=== PATIENT | female | born 1960 | race Caucasian/White ===

== ENCOUNTER 2020-08-08 07:21 | Outpatient (REF) | payer OTHER, SELFPAY ==
--- NOTE | ~2020-08-08 | MM_ITS ---
EXAMINATION: MM SCREENING DIGITAL BREAST TOMOSYNTHESIS, BILATERAL CLINICAL INFORMATION: Screening. Asymptomatic. The lifetime risk of breast cancer based on the Tyrer-Cuzick Model is 4.8%. COMPARISON: Mammography: December 29, 2016 and studies dating back to December 24, 2011 TECHNIQUE: Digital breast tomosynthesis is performed in both the craniocaudal and mediolateral oblique views along with computer-aided detection (CAD). Synthesized 2D images are generated from the tomosynthesis. FINDINGS: The breasts are heterogeneously dense, which may obscure small masses (ACR BI-RADS breast composition Category c). There are no significant masses, abnormal calcifications, or other abnormalities. MM/MM tomosynthesis screening BI IMPRESSION: There are no significant changes from prior study. ASSESSMENT: BI-RADS 1: Negative RECOMMENDATION: Routine annual mammography screening. This patient's information was entered into a reminder system with a target due date for their next mammogram.
== END 2020-08-08 07:22 | disposition home or self-care (01) ==
LOC: HO.MAMMO 07:21
PROVIDERS: Visit Provider Obstetrics & Gynecology
DX: Z12.31 Encounter for screening mammogram for malignant neoplasm of breast (principal)
CPT/HCPCS: 77063; 77067

== ENCOUNTER 2021-09-24 09:07 | Outpatient (REF) | payer OTHER, SELFPAY | END 2021-09-24 09:08 | disposition home or self-care (01) | LOC: HO.LAB 09:07 | PROVIDERS: PCP Internal Medicine; Visit Provider Psychiatry & Neurology Neurology | DX: G71.00 Muscular dystrophy, unspecified (principal) | CPT/HCPCS: 36415; 82550 ==

== ENCOUNTER 2022-07-21 07:37 | Outpatient (REF) | payer OTHER, SELFPAY ==
[2022-07-21 12:23] LABS: Erythrocyte Sedimentation Rate 3 MM/HR (0-20)
[2022-07-21 12:29] LABS: Rheumatoid Factor < 13.0 IU/mL (<15.0)
[2022-07-23 08:13] LABS: Lyme Abs Screen <0.90 index
[2022-07-23 15:09] LABS: IgA 127 mg/dL (47-310); IgG 981 mg/dL (600-1640); IgM 58 mg/dL (50-300)
[2022-07-26 13:58] LABS: Anti Nuclear Antibody Screen NEGATIVE (NEGATIVE)
== END 2022-07-21 07:38 | disposition home or self-care (01) ==
LOC: HO.WFDLDS 07:37
PROVIDERS: Visit Provider Psychiatry & Neurology Neurology
DX: M79.671 Pain in right foot (principal); M79.672 Pain in left foot; G62.9 Polyneuropathy, unspecified
CPT/HCPCS: 36415; 82784; 85652; 86038; 86334; 86431; 86617; 86618

== ENCOUNTER 2023-07-08 12:36 | Outpatient (REF) | payer OTHER, SELFPAY | END 2023-07-08 12:37 | disposition home or self-care (01) | LOC: HO.MAMMO 12:36 | PROVIDERS: PCP Internal Medicine; Visit Provider Internal Medicine | DX: Z12.31 Encounter for screening mammogram for malignant neoplasm of breast (principal) | CPT/HCPCS: 77063; 77067 ==

== ENCOUNTER → 2023-07-08 13:00 | Outpatient (BNV) | payer OTHER, SELFPAY | PROVIDERS: PCP Internal Medicine; Visit Provider Radiology Diagnostic Radiology | DX: Z12.31 Encounter for screening mammogram for malignant neoplasm of breast (principal) | CPT/HCPCS: 77063; 77067 ==

== ENCOUNTER 2024-09-01 15:33 | Outpatient (REF) | payer OTHER, SELFPAY ==
--- OUTSIDE RECORDS SUMMARY | 2023-12-24 05:45 | XMS_ITS ---
Author Name [facility] [place] [facility] [place] Address [address] [place] [address] Care Team Providers Care Clinical Laboratory Aide Name Role Phone EBONIE MARIE Primary Care Provider Unavail able Insurance Providers: All historical and current Section Date Range: From patient's date of to the date document was created. This section includes the names of all active insurance providers for the patient. Insurance Provider Type of Coverage Plan Name Start of Policy Coverage End of Policy Coverage Group Number Member ID Insurance Provider's Telephone Number Policy Carreon's Name Patient's Relationship to Policy Carreon [employer] PRESCRIPT ION RX Mar 15, 2022 THPRX [id number] CYNTHIA SOTO PATIENT [facility] HOWARD Navaror Nov 14, 2019 [facility] [id number] CYNTHIA SOTO PATIENT Selected Encounter This section includes the information on record at [place] for the Encounter. Date/Time Encounter Type Encounter Description Reason Provider Source Dec 24, 2023 09:45 AM CPTR OPHTH DX IMG POST SEGMT OPTOMETRY ICD-10-CM H35.9 Unspecified retinal disorder PRAVIN JURADO IHRamon Encounter Template Text not used by [facility] Assessments - Encounter Diagnoses This section includes the primary and secondary diagnoses documented for the Encounter. Date/Time Primary/Secondary Diagnosis Diagnosis Name Provider Source Dec 24, 2023 12:59 PM PRIMARY Unspecified retinal disorder LUCILLESUSANNAANDRESPRAVIN Navarro GERTRUDIS J [place] [facility] [place] [facility] Plan of Treatment: Future Appointments (+ 6 months) and Future Tests (+/- 45 days) The Plan of Treatment section includes [facility] care activities for the [facility] [place] [facility] This section includes future appointments and future orders which are active, pending or scheduled. Future Appointments This section includes appointments that were scheduled to occur 6 months from the date of the Encounter, up to a maximum of 20 appointments. The data comes from all [facility]. Appointment Date/Time Appointment Type Appointme nt Facility Name Jan 04, 2024 09:30 AM AM[facility]ULATORY - [facility] [place] [facility] Jan 19, 2024 01:30 PM AMBULATORY - MEDICINE [facility] Feb 15, 2024 04:45 PM [place]ORY [place] [facility] [place] [facility] Feb 15, 2024 05:15 PM [place]ORY [place] [facility] [place] [facility] Feb 15, 2024 05:45 PM AM[place]UL[place]ORY [place] [facility] [place] [facility] Mar 07, 2024 02:00 PM AM[place]UL[place]ORY [place] [facility] [place] [place] [facility] Apr 18, 2024 02:00 PM AM[place]UL[place]ORY [place] [facility] [place] [place] [facility] Apr 19, 2024 01:30 PM AMBULATORY - MEDICINE [facility] May 26, 2024 02:00 PM AMBULATORY - REHAB [facility] Active, Pending, and Scheduled Orders This section includes a listing of several types of active, pending, and scheduled orders, including clinic medications orders, diagnostic test orders, procedure orders and consult orders; where the start date of the order is 45 days before the date of the Encounter or 45 days after the date of theEncounter. The data comes from all [facility]. Test Date/Time Test Type Test Details Facility Name Jan 19, 2024 06:45 PM Consult Order [facility]-NEUROLOGY Cons [employer] [facility] Lab Results: +/- 30 days of the encounter This section includes the Chemistry and Hematology Lab Results on record with [place] for the patient. Radiology Reports and Pathology Reports are provided separately, in subsequent sections. Lab Results This section contains the Chemistry/Hematology Results that were resulted 30 days before or 30 daysafter the date of the Encounter. Date/Time Source Result Type Result - Unit Interpretation Reference Range Specimen Type Comment Dec 22, 2023 10:44 AM [facility] LIPOPROTEIN (a) SERUM Specimen Type: SERUM Comment: REFERENCE RANGE: <75 nmol/L Risk Category Optimal < 75 nmol/L Moderate 75 - 125 nmol/L High > 125 nmol/L Cardiovascular event risk category cut points (optimal, moderate, high) are based on Jenaro Delgado [facility] 2017;69:[id number] . Test Performed by [facility], [employer] [facility], [address] [place] [address] Lawrence Dorman M.D., Ph.D., Director of Laboratories , [place] [id number] TEST PERFORMED AT: , Ordering Provider: GINGER JOHNSTON Report Released Date/Time: Dec 22, 2023 10:36 AM Reporting Lab: [facility] [address] [address] Performing Lab: [facility] [address] [address] LIPOPROTEIN (a) 10 nmol/L SEE BELOW Dec 22, 2023 10:44 AM [facility] VITAMIN B12 SERUM Specimen Type: SERUM No comment entered. Ordering Provider: GINGER JOHNSTON Report Released Date/Time: Dec 22, 2023 10:36 AM Reporting Lab: [facility] [address] [address] Performing Lab: [facility] [address] [address] VITAMIN B12 779 pg/mL 200-900 Dec 17, 2023 10:14 AM [facility] BASIC METABOLIC PANEL (fasting) SERUM Specimen Type: SERUM No comment entered. Ordering Provider: GINGER JOHNSTON Report Released Date/Time: Dec 09, 2023 08:12 AM Reporting Lab: [facility] [address] [address] Performing Lab: [address] [address] UREA NITROGEN 17 mg/dL 7-25 GLUCOSE 86 mg/dL 65-100 SODIUM 140 mmol/L 135-145 POTASSIUM 4.4 mmol/L 3.5-5.0 CHLORIDE 105 mmol/L 100-110 CO2 26 meq/L 20-30 CREATININE, Serum 0.73 mg/dL 0.50-1.40 eGFR(CKD-EPI 2020) >90 mL/min >60 Dec 17, 2023 10:14 AM [facility] LIPID PANEL FASTING SERUM Specimen Ty pe: SERUM No comment entered. Ordering Provider: GINGER JOHNSTON Report Released Date/Time: Dec 09, 2023 08:12 AM Reporting Lab: [address] [address] Performing Lab: [address] [address] CHOLESTEROL 269 mg/dL H TRIGLYCERIDE 69 mg/dL 0-150 LDL calculated 176 mg/dL H 0-129 CHOL/HDL 3.4 HDL CHOLESTEROL 79 mg/dL H 40-60 Dec 17, 2023 10:14 AM [facility] LIVER FUNCTION SERUM Specimen Type: SERUM No comment entered. Ordering Provider: GINGER JOHNSTON Report Released Date/Time: Dec 09, 2023 08:12 AM Reporting Lab: [address] [address] Performing Lab: [address] [address] PROTEIN,TOTAL 6.9 g/dL 6.0-8.3 ALBUMIN 4.3 g/dL 3.5-5.0 ALKALINE PHOSPHATASE 44 U/L 40-150 AST 37 U/L H 5-34 ALT 31 U/L BILIRUBIN, TOTAL 0.7 mg/dL 0.2-1.2 Dec 17, 2023 10:14 AM [facility] CBC AND DIFF (AUTO) BLOOD Specimen Ty pe: BLOOD No comment entered. Ordering Provider: GINGER JOHNSTON Report Released Date/Time: Dec 09, 2023 08:12 AM Reporting Lab: [address] [address] Performing Lab: [address] [address] WBC 3.48 10*3/uL L 4.50-11.00 RBC 4.39 10*6/uL 3.93-5.16 HGB 13.3 g/dL 12-15.2 HCT 39.5 36.6-45.6 MCV 90.0 fL 82-99 MCHC 33.7 g/dL 30.8-35.1 PLT 238 10*3/uL 140-360 RDW-CV 13.1 12.0-16.0 MONO, ABS 0.25 10*3/uL L 0.30-1.10 MCH 30.3 pg 26.2-32.6 NEUT % 67.2 43.7-75.8 LYMPH % 23.0 14.0-42.3 MONO % 7.2 5.1-13.7 EOS % 1.4 0.4-6.8 BASO % 0.9 0.1-2.0 NEUT, ABS 2.34 10*3/uL 2.20-7.60 LYMPH, ABS 0.80 10*3/uL L 1.00-3.20 EOS, ABS 0.05 10*3/uL 0.03-0.44 BASO, ABS 0.03 10*3/uL 0.01-0.13 IMMATURE GRAN % 0.3 0.0-0.7 IMMATURE GRAN, ABS 0.01 10*3/uL 0.00-0.0 6 NRBC % 0.0 0.0-0.0 NRBC, ABS 0.00 10*3/uL 0.00-0.00 Dec 17, 2023 10:14 AM [facility] HEMOGLOBIN A1C PANEL BLOOD Specimen T ype: BLOOD Comment: Values obtained from A1C measurements can vary. For atypical A1C assays, a reported value of 7.0 could actually be between 6.72 and 7.28 if measured by a reference method. A reported value of 9.0 could actually be between 8.73 and 9.27. Ref: http://www.ngsp.org/CAPdata.asp Ordering Provider: GINGER JOHNSTON Report Released Date/Time: Dec 09, 2023 08:12 AM Reporting Lab: [address] [address] Performing Lab: [address] [address] HEMOGLOBIN A1C 5.0 4.0-5.6 Dec 17, 2023 10:14 AM [facility] TSH SERUM Sp ecimen Type: SERUM No comment entered. Ordering Provider: GINGER JOHNSTON Report Released Date/Time: Dec 09, 2023 08:12 AM Reporting Lab: [facility] [address] [address] Performing Lab: [address] [address] TSH 1.00 u[IU]/mL 0.35-5.00 Social History: Smoking Status (Most current) and Tobacco Use (All prior to encounter date) This section includes the most current, and the historical, smoking and tobacco- related health factors from the [place] facility where the Encounter took place. Current Smoking Status This section includes the most current smoking, or tobacco-related health factor, from the [place] facility where the Encounter took place. Date/Time Current Smoking Status Comment Facil ity Dec 22, 2022 02:22 PM [facility] NEVER USED [facility] Radiology Reports: +/- 30 days of the encounter Radiology Reports For cases when an order for radiology services may have been completed prior to the date of the Encounter, the report list includes the Radiology Reports that were completed up to 30 days before dateof the Encounter. For cases when an order for radiology services may have been completed after the date of the Encounter, the report list also includes the Radiology Reports that were completed up to30 days after date of the Encounter. The data comes from all [place] treatment facilities. Date/Time Radiology Report Provider Source Jan 04, 2024 09:22 AM ULTRASOUND EXTREMITY, NONVASCULAR (COMPLETE): TAWNYABRISEIDAMOE [id number] -[id number] F Exm Date: JAN 04, 2024@09:22 Req Phys: GINGER JOHNSTON Pat Loc: C[facility]/SO/PACT EIGHT WH (Req'g Lo Img Loc: ULTRASOUND Service: [place] [address] (Case [id number] COMPLETE) ULTRASOUND EXTREMITY, NONVASCULAR(US Detailed) CPT:01406 Proc Modifiers : LEFT Reason for Study: left hip area-? lipoma Clinical History: Report Status: Verified Date Reported: JAN 04, 2024 Date Verified: JAN 04, 2024 [employer] E-Sig: Report: ULTRASOUND EXTREMITY, NONVASCULAR (COMPLETE) Clinical History: left hip area-? lipoma Reason for Study: left hip area-? lipoma Comparison: No priors available TECHNIQUE: Real-time sonographic images were taken of the area of interest, described as the left hip and upper anterior thigh. Grayscale imaging only. Findings: No focal mass lesion appreciated at the area of interest. No discrete drainable collection. Impression: No focal mass lesion appreciated at the area of interest. No discrete drainable collection. READING PHYSICIAN: Marta Gautam M.D. -[id number] 01/04/2024 7:45 PDT [facility] National Teleradiology Program [phone] (For Medical Practitioner Use Only) Attention Patients / Veterans: If you have questions or concerns about these test results, please contact your ordering provider or primary care team. Primary Diagnostic Code: NO ALERT REQUIRED Primary Interpreting Staff: RADIOLOGY,OUTSIDE SERVICE, Staff Physician / RADIOLOGY,OUTSIDE SERVICE [facility] Encounter Notes: All associated encounter notes This section contains the clinical notes associated to the Encounter. Date/Time Encounter Note(s) Provider Source Dec 24, 2023 10:35 AM OPTOMETRY CONSULT: LOCAL TITLE: CONSULT REPORT/OPTOMETRY OCT STANDARD TITLE: OPTOMETRY CONSULT DATE OF NOTE: DEC 24, 2023@10:35 ENTRY DATE: DEC 24, 2023@10:35:37 AUTHOR: KAVITA JURADO EXP COSIGNER: URGENCY: STATUS: COMPLETED macular OCT to assess dark area OS near fovea, suspect partial thickness macular hole results 21 line raster done OS no macular hole noted RPE has an area below foveal pit that extends into deep sensory retina which is likely extra cone density no signs of CNVM no intraretinal or subretinal fluid RPE is otherwise intact A-macular anomoly OS P-gave pt HAG with instructions to call stat if changes noted /jose/ Kavita Jurado OD Fee Basis Certified Medicine Aide Signed: 12/24/2023 12:59 KAVITA JURADO [facility]
--- NOTE | ~2024-09-01 | MM_ITS ---
EXAMINATION: MM SCREENING DIGITAL BREAST TOMOSYNTHESIS, BILATERAL CLINICAL INFORMATION: Screening. Asymptomatic. COMPARISON: Mammography: Comparison is made with available priors TECHNIQUE: Digital breast mammography with tomosynthesis is performed in both the craniocaudal and mediolateral oblique views along with computer-aided detection (CAD). FINDINGS: The breasts are heterogeneously dense, which may obscure small masses (ACR BI-RADS breast composition Category c). There are no significant masses, abnormal calcifications, or other abnormalities. MM/MM tomosynthesis screening BI IMPRESSION: No mammographic evidence of malignancy. ASSESSMENT: BI-RADS BI-RADS 1 - Negative RECOMMENDATION: Routine annual mammography screening. 1 year F/U This examination should not preclude the clinical evaluation of a suspicious palpable abnormality. This patient's information was entered into a reminder system with a target due date for their next mammogram. Electronically signed by: Genesis Torres DO 09/08/2024 08:37 AM EDT
== END 2024-09-01 15:34 | disposition home or self-care (01) ==
LOC: HO.MAMMO 15:33
PROVIDERS: PCP Internal Medicine; Visit Provider Nurse Practitioner Family
DX: Z12.31 Encounter for screening mammogram for malignant neoplasm of breast (principal)
CPT/HCPCS: 77063; 77067

== ENCOUNTER → 2024-09-01 16:00 | Outpatient (BNV) | payer OTHER, SELFPAY | PROVIDERS: PCP Internal Medicine; Visit Provider Internal Medicine | DX: Z12.31 Encounter for screening mammogram for malignant neoplasm of breast (principal) | CPT/HCPCS: 77063; 77067 ==